=== PATIENT | male | born 1985 | race African-American/Black ===

== ENCOUNTER 2016-02-28 21:03 | Emergency (ER) | payer SELFPAY ==
[~2016-02-28] VITALS: Ht 182.9 cm; Wt 120.0 kg
[~2016-02-28 21:03] MED LIST: Z.0.NO CURRENT MEDS
[2016-02-28 21:04] VITALS: BP 133/88; PULSE 74; RESP 16; TEMP 98; O2SAT 96
[2016-02-28] MEDS ORDERED: PENI500T PO (22:46)
[2016-02-28] MEDS ORDERED: PERI0.126 SWISH-SPIT (22:46)
--- NOTE | 2016-02-28 22:51 | PD ---
HPI Chief Complaint: ENT Complaint Time Seen by Provider: 22:38 Travel History International Travel<30 days: No Contact w/Intl Traveler<30days: No Traveled to known affect area: No History of Present Illness HPI This is a 30-year-old male with no significant past medical history. He presents for evaluation of dental pain, sore throat. Symptoms started this morning. He says that primarily his lower teeth are painful, worse when chewing. He also has pain in his gums which started after popping some type of lesion in the lower gumline today. He also has a sore throat. Symptoms are mild, aggravated by chewing and swallowing. No fevers or chills. No other complaints. PFSH Past Medical History Asthma: Yes Cardiovascular Problems: Yes (HEART MURMUR) Hepatitis: Yes Integumentary: Yes Social History Alcohol Use: Yes (OCC) Tobacco Use: Yes (02/10 PPD) Substance Use: Yes (MARIJUANA) Allergies-Medications (Allergen,Severity, Reaction): Coded Allergies: Skelaxin (Verified Allergy, Mild, HIVES, 02/28/16) Reported Meds & Prescriptions Reported Meds & Active Scripts Active Peridex Liq (Chlorhexidine Gluconate (Mouth) Liq) 0.12% Soln 15 Ml SWISH-SPIT BID Penicillin V Potassium 500 Mg Tab 500 Mg PO Q8H 10 Days Review of Systems Except as stated in HPI: all other systems reviewed are Neg Physical Exam Narrative GENERAL: Well-developed well-nourished male in no acute distress SKIN: Warm and dry. HEAD: Atraumatic. Normocephalic. EYES: Pupils equal and round. No scleral icterus. No injection or drainage. ENT: No nasal bleeding or discharge. Mucous membranes pink and moist. The patient has multiple areas of dental decay. There is no trismus, no gingival edema, no facial edema, no sublingual edema, no oral pharyngeal erythema or exudate NECK: Trachea midline. No JVD. No lymphadenopathy. Data Data Last Documented VS Vital Signs Date Time Temp Pulse Resp B/P Pulse Ox O2 Delivery O2 Flow Rate FiO2 02/28/16 21:04 98.0 74 16 133/88 96 Room Air MDM Medical Decision Making Medical Screen Exam Complete: Yes Emergency Medical Condition: Yes Medical Record Reviewed: Yes Differential Diagnosis Dental caries, mucocele, periodontal abscess acute necrotizing ulcerative gingivitis, pulpitis, pericoronitis, pharyngitis Narrative Course Physical examination reveals multiple areas of dental decay. Ideally this patient would follow up with a dentist for definitive therapy. Plan is to treat the patient currently with oral antibiotic rinse and a course of systemic penicillin therapy. He is stable for discharge. Diagnosis Primary Impression: Dental caries Additional Impression: Pharyngitis Qualified Code: J02.9 - Pharyngitis, unspecified etiology Additional Instructions: Medication as prescribed. Follow up with a dentist for definitive therapy. Avoid tobacco products. Return for any emergent medical conditions. Med/Other Pt SpecificInfo: Prescription(s) given Scripts Chlorhexidine Gluconate (Mouth) Liq (Peridex Liq)0.12% Soln15 Ml SWISH-SPIT BID #473 ML Ref 0 Prov:eJffery Jensen MD 02/28/16 Penicillin V Potassium 500 Mg [id number] Mg PO Q8H 10 Days Ref 0 Prov:Jeffery Jensen MD 02/28/16 Disposition: 01 DISCHARGE HOME Condition: Stable Vamsi Colmenares Feb 28, 2016 22:51
== END 2016-02-28 23:11 | disposition home or self-care (01) ==
LOC: NEPB 21:03
DX: K02.9 Dental caries, unspecified (principal); J02.9 Acute pharyngitis, unspecified; R01.1 Cardiac murmur, unspecified; F17.210 Nicotine dependence, cigarettes, uncomplicated; F12.90 Cannabis use, unspecified, uncomplicated
CPT/HCPCS: 99282